=== PATIENT | male | born 1970 | race Caucasian/White ===

== ENCOUNTER 2024-08-13 06:16 | Day surgery (SDC) | payer OTHER, SELFPAY ==
[2024-07-23 12:39] VITALS: BMI 31.0
[2024-08-13] VITALS (10 sets, daily range): BP systolic 84–135; BP diastolic 54–95; BMI 31.0
[2024-08-13] MEDS: CELEBREX 200 MG PO (06:29)
[2024-08-13] MEDS: TYLENOL 1000 MG PO (06:29)
[2024-08-13] MEDS: NORMOSOL-R/PLASMALYTE-A 1000 IV (06:29)
[2024-08-13] MEDS: DILAUDID 0.5 MG IV ×2 (08:51→09:03)
[2024-08-13] MEDS: DEMEROL 12.5 MG IV ×2 (09:18→09:24)
[2024-08-13] MEDS: ROXICODONE 5 MG PO (10:17)
== END 2024-08-13 11:03 | disposition home or self-care (01) ==
LOC: SDS 06:16
PROVIDERS: ATTENDING PHYSICIAN Student in an Organized Health Care Education/Training Program; FAMILY PHYSICIAN Family Medicine
DX: M19.071 Primary osteoarthritis, right ankle and foot (principal)
CPT/HCPCS: 29898; 93005